=== PATIENT | male | born 1975 | race Caucasian/White ===

== ENCOUNTER 2017-04-18 00:01 | Emergency (ER) | payer OTHER ==
[~2017-04-18] VITALS: Ht 177.8 cm; Wt 88.6 kg
[~2017-04-18 00:01] MED LIST: NO HOME MEDICATIONS
[2017-04-18] MEDS ORDERED: ATARAX 10MG10 MG/TAB PO (00:37)
[2017-04-18] MEDS ORDERED: CATAPRES 0.1MG0.1 MG PO (00:37)
[2017-04-18] MEDS ORDERED: DESYREL 100MG100 MG PO (00:38)
[2017-04-18] MEDS ORDERED: PROZAC20 M1 PO (00:38)
[2017-04-18] MEDS ORDERED: LAMICTAL200 M1 PO (00:39)
[2017-04-18] MEDS ORDERED: AMOXICILLIN AND1 TA2 PO (01:04)
[2017-04-18] MEDS ORDERED: NORCO 325 MG-51 TA1 PO (01:04)
[2017-04-18] MEDS ORDERED: KETOROLAC10 MG PO (01:09)
[2017-04-18 01:22] VITALS: BP 106/73
== END 2017-04-18 01:22 | disposition home or self-care (01) ==
LOC: ED 00:01
DX: L02.31 Cutaneous abscess of buttock (principal); F43.10 Post-traumatic stress disorder, unspecified; F41.9 Anxiety disorder, unspecified; F32.9 Major depressive disorder, single episode, unspecified
CPT/HCPCS: A4649; J1885

== ENCOUNTER 2017-04-24 17:51 | Emergency (ER) | payer OTHER ==
[~2017-04-24 17:51] MED LIST changes: +AMOXICILLIN AND1 TA2 PO; +ATARAX 10MG10 MG/TAB PO; +CATAPRES 0.1MG0.1 MG PO; +DESYREL 100MG100 MG PO; +KETOROLAC10 MG PO; +LAMICTAL200 M1 PO; +NORCO 325 MG-51 TA1 PO; +PROZAC20 M1 PO
[2017-04-24 18:09] VITALS: BP 128/81
== END 2017-04-24 18:09 | disposition home or self-care (01) ==
LOC: ED 17:51
DX: Z48.02 Encounter for removal of sutures (principal)